=== PATIENT | female | born 1960 | race Caucasian/White ===

== ENCOUNTER 2020-07-24 22:04 | Emergency (ER) | payer OTHER ==
[2020-07-24 22:10] VITALS: BP 138/63; PULSE 72; TEMP 98.5; BMI 28.3
[2020-07-24] MEDS ORDERED: METHOCARBAMOL 500 MG TABLET PO ONE (23:28)
[2020-07-24] MEDS ORDERED: IBUPROFEN 600 MG TABLET (FP) PO ONE ×2 (23:28→23:42)
[2020-07-24] MEDS ORDERED: METHOCARBAMOL 500 MG TABLET ONE (23:42)
== END 2020-07-25 00:45 | disposition home or self-care (01) ==
LOC: JER 22:04
DX: M54.2 Cervicalgia (principal)
CPT/HCPCS: 36415; 71045-TC-FY; 82550; 84484; 93005; 93010; 99284-25

== ENCOUNTER 2022-07-21 01:05 | Emergency (ER) | payer OTHER ==
[2022-07-21 01:09] VITALS: RESP 18; BMI 28.0
[2022-07-21] MEDS ORDERED: MAG HYDROX/AL HYDROX/SIMETH 30 ML UNIT-DOSE CUP PO ONE (02:55)
[2022-07-21] MEDS ORDERED: FAMOTIDINE 20 MG TABLET PO ONE (02:55)
[2022-07-21] MEDS ORDERED: FAMOTIDINE 20 MG TABLET ONE (03:16)
[2022-07-21] MEDS ORDERED: MAG HYDROX/AL HYDROX/SIMETH 30 ML UNIT-DOSE CUP ONE (03:17)
[2022-07-21 03:24] VITALS: BP 140/80; PULSE 60; TEMP 97.8
[2022-07-21 03:24] LABS: BASO % 0.5 % (0-2.0); EOS % 1.3 % (0-4.5); HEMATOCRIT 38.7 % (32.4-45.2); HEMOGLOBIN 12.8 GM/dL (10.7-15.3); MCH 31.1 pg (25.7-33.7); MCHC 33.1 g/dl (32.0-36.0); MEAN CELL VOLUME 93.8 fl (80-96); MEAN PLT VOLUME 7.2 fl (7.5-11.1); MONO % 6.6 % (3.8-10.2); NEUT % 78.6 % (42.8-82.8); PLATELET COUNT 355 10^3/uL (134-434); RBC 4.13 M/mm3 (3.60-5.2); RDW 13.8 % (11.6-15.6); WHITE BLOOD COUNT 12.1 K/mm3 (4.0-10.0)
[2022-07-21 03:41] LABS: EPI CELLS 3 /uL (0-25.1); HYALINE CASTS 0 /uL (0-3.1); URINE APPEARANCE CLEAR; URINE BACTERIA 29 /uL (0-1359); URINE BILIRUBIN NEGATIVE (NEGATIVE); URINE COLOR YELLOW; URINE GLUCOSE (UA) NEGATIVE (NEGATIVE); URINE KETONE NEGATIVE (NEGATIVE); URINE LEUK ESTERASE TRACE (NEGATIVE); URINE NITRITE NEGATIVE (NEGATIVE); URINE PROTEIN NEGATIVE (NEGATIVE); URINE RBC 10 /uL (0-23.9); URINE UROBILINOGEN 0.2 mg/dL (0.2-1.0); URINE WBC 8 /uL (0-25.8)
[2022-07-21 03:42] LABS: CALCIUM 9.6 mg/dL (8.5-10.1)
[2022-07-21 03:43] LABS: ALBUMIN 4.1 g/dl (3.4-5.0); BLOOD UREA NITROGEN 19.8 mg/dL (7-18)
[2022-07-21 03:46] LABS: CREATININE 0.9 mg/dL (0.55-1.3)
[2022-07-21 03:47] LABS: BILIRUBIN,TOTAL 0.2 mg/dL (0.2-1)
[2022-07-21 03:48] LABS: TOT PROT 8.2 g/dl (6.4-8.2)
== END 2022-07-21 04:52 | disposition home or self-care (01) ==
LOC: JER 01:05
DX: A05.9 Bacterial foodborne intoxication, unspecified (principal); R11.2 Nausea with vomiting, unspecified; R19.7 Diarrhea, unspecified
CPT/HCPCS: 36415; 71046-TC-FY; 80053; 81003; 85025; 87086; 93005; 93010; 99285-25